=== PATIENT | male | born 2005 | race Two or more races ===

== ENCOUNTER 2025-01-26 17:45 | Emergency (ER) | payer MEDICAID, SELFPAY ==
[2025-01-26 18:38] VITALS: BP 111/80; PULSE 98; RESP 16; TEMP 36.9; O2SAT 98; BMI 29.0
--- NOTE | 2025-01-26 19:19 | XR_ITS ---
Examination: CT brain head without contrast. 2-D sagittal coronal reconstructions Date and time of exam: January 2020, 2024, 1999 hours INDICATIONS: Onset headache dizziness today CTDI: vol (mGy): 45.9 DLP: (mGycm): 839 Technique: Multiple CT axial sections of the brain have been obtained, 5 mm slice thickness. Contrast has not been administered. 2-D sagittal, coronal reconstructions have been obtained Low dose protocols were performed. One or more of the following dose reduction techniques were used; automated exposure control, adjustment of the mA and/or KV according to patient size, use of iterative reconstruction technique. Findings: No significant ventricular enlargement. Intra-axial or extra-axial hemorrhage density is not seen. No mass effect or midline shift Basal cisterns are not remarkable. Fourth ventricle is midline. Cranial vault intact. Impression: Negative for acute hemorrhage, mass effect or midline shift
[2025-01-26 19:42] LABS: Basophils # (Auto) 0.1 Thou/mm3 (0.0-0.2); Basophils % (Auto) 0 % (0-2.5); Eosinophils # (Auto) 0.0 Thou/mm3 (0.0-0.5); Eosinophils % (Auto) 0 % (0-10); Hematocrit 50.0 % (41.0-53.0); Hemoglobin 17.2 g/dL (13.5-16.0); Immature Granulocytes Auto 0.09 Thou/mm3 (0.00-0.00); Lymphocytes # (Auto) 1.1 Thou/mm3 (1.0-4.8); Lymphocytes % (Auto) 6 % (10-50); Mean Corpuscular HGB Conc 34.4 g/dl (31.0-37.0); Mean Corpuscular Hemoglobin 28.7 pg (25.0-35.0); Mean Corpuscular Volume 83 fL (80-100); Monocytes # (Auto) 1.0 Thou/mm3 (0.0-0.8); Monocytes % (Auto) 5 % (0-12); Neutrophils # (Auto) 17.5 Thou/mm3 (1.8-7.7); Neutrophils % (Auto) 88 % (37-80); Nucleated Red Blood Cell # 0.00 Thou/mm3 (0.00-0.00); Nucleated Red Blood Cell % 0 /100 WBC (0); Platelet Count 185 Thou/mm3 (140-440); RDW Standard Deviation 38.5 fL (35.1-43.9); Red Blood Count 6.00 Miln/mm3 (4.50-5.90); White Blood Count 19.8 Thou/mm3 (4.5-11.0)
[2025-01-26 20:32] LABS: Alanine Aminotransferase 28 U/L (10-49); Albumin, Serum > 6.0 gm/dL (3.5-5.0); Albumin/Globulin Ratio 1.5 (1.2-2.2); Alkaline Phosphatase 165 U/L (46-116); Anion Gap 15 (7-16); Aspartate Amino Transferase 31 U/L (0-34); BUN/Creatinine Ratio 12 Ratio (12-20); Bilirubin,Total 0.7 mg/dL (0.3-1.2); Blood Urea Nitrogen 24 mg/dL (9-23); Calcium 11.4 mg/dL (8.3-10.6); Calcium (Corrected) 11.4 mg/dL (8.5-10.1); Carbon Dioxide 23.9 mMol/L (20.0-31.0); Chloride 95 mMol/L (98-107); Creatinine (Component) 2.0 mg/dL (0.6-1.3); Estimated Creatinine Clearance 51.3 mL/min (>60); Globulin 3.9 gm/dL (2.3-3.5); Glucose 108 mg/dL (74-106); Osmolality,Calculated 273 (275-295); Sodium 134 mMol/L (136-145); Total Protein 9.9 gm/dL (5.7-8.2); eGFR 48 See Note
[2025-01-26 20:38] LABS: Potassium 6.2 mMol/L (3.4-5.1)
--- NOTE | 2025-01-26 20:40 | PD.EDRME ---
Rapid Medical Screening Exam RME Arrival date/time: 01/26/25 17:45 This is a case of 20-year-old male who came in in the emergency room due to headache dizziness and blurring of vision for 2 days worsening of the symptoms this patient decided to sought consult here in the emergency ROOM Chief Complaint: Headache Time Seen by Provider: 01/26/25 18:35 Vital signs: Vital Signs Temperature 98.4 F 01/26/25 18:38 Pulse Rate 98 01/26/25 18:38 Respiratory Rate 16 01/26/25 18:38 Blood Pressure 111/80 01/26/25 18:38 Pulse Oximetry (%) 98 01/26/25 18:38 Oxygen Delivery Method Room Air 01/26/25 18:38 Exam: Neurological exam awake alert oriented x 4 no focal deficit GCS 15 overweight 15 steady gait PERRL EOM intact normal conjunctiva Clinical Impression: Headache
--- NOTE | 2025-01-26 20:58 | PD.EDHA ---
ED Headache RME/HPI General Chief Complaint: Headache Stated Complaint: CRAMP IN HEAD W/ BLURRY VISION , ABD PAIN Time Seen by Provider: 01/26/25 18:35 Arrival date/time: 01/26/25 17:45 RME / HPI RME / HPI Narrative: 01/26/25 17:45 This is a case of 20-year-old male who came in in the emergency room due to headache dizziness and blurring of vision for 2 days worsening of the symptoms this patient decided to sought consult here in the emergency ROOM Dr. Yepez?s Main ED Evaluation: 20yo male with no significant past medical history presents to the ED for a chief complaint of a posterior headache x 5 hours. Patient reports associated chest pain and generalized abdominal pain. Denies any N/V or any other associated symptoms. Denies illicit drug use. NKA. Related Data Allergies Allergy/AdvReac Type Severity Reaction Status Date / Time No Known Allergies Allergy Verified 01/26/25 17:51 Review of Systems Review of Systems Systems Reviewed: All systems reviewed, normal except as documented ED Exam Narrative Physical exam: Generally patient is alert no obvious distress, head is normocephalic atraumatic, eyes pupils equal round reactive to light, neck shows no nuchal rigidity, heart regular rate and rhythm, lungs clear to auscultation equal bilaterally, abdomen soft bowel sounds present nondistended nontender, skin is cool pale and dry, neurologic exam showed no focal motor deficits with Pily Coma Scale 15 Course Course Course Narrative: CXR is ordered for determining the etiology of chest pain. Quality Measures none Orders Category Date Time Status EKG (ED ONLY) *Do not use* NOW Care 01/26/25 21:[address] head/brain wo con Stat Exams 01/26/25 19:19 Completed EKG (ED Only) Stat Exams 01/26/25 21:01 Draft XR chest 1V portable Stat Exams 01/26/25 21:43 Completed BMP [Basic Metabolic Panel] Stat Lab 01/26/25 23:07 Completed CBC Stat Lab 01/26/25 19:29 Completed Comprehensive Metabolic Panel Stat Lab 01/26/25 19:29 Completed Potassium Stat Lab 01/26/25 21:02 Completed Urinalysis Stat Lab 01/26/25 21:11 Completed Ringers Lactated 1000 ml [Lactated Ringers] 1,000 ml Med 01/26/25 21:09 Discontinued IV 999 mls/hr Ringers Lactated 1000 ml [Lactated Ringers] 1,000 ml Med 01/26/25 21:09 Discontinued IV 999 mls/hr Vital Signs Vital signs: Vital Signs Temperature 98.4 F 01/26/25 18:38 Pulse Rate 98 01/26/25 18:38 Respiratory Rate 16 01/26/25 18:38 Blood Pressure 111/80 01/26/25 18:38 Pulse Oximetry (%) 98 01/26/25 18:38 Oxygen Delivery Method Room Air 01/26/25 18:38 Headache MDM Narrative MDM Narrative:: Scribe Attestation: 01/26/25 - Clemencia Montesinos am scribing for and in the presence of Dr. Yepez. Patient's original creatinine was 2.0 was a 6.4 potassium. EKG shows some peaking of T waves but with normal QRS duration. Potassium was repeated without therapy and was 5.3. Patient was hydrated with 2 L of IV lactated Ringer's and potassium is now normal at 4.5 and creatinine has gone down to 1.4. Chest x-ray is normal. White count was 19,000 of uncertain significance. Patient's headache may be from dehydration as well as his electrolyte abnormality and renal insufficiency. Patient was encouraged to drink plenty of fluids throughout the day. Follow-up with his doctor. Return to ER as needed or if condition worsens. Clinically this patient does not have meningitis. Patient data External records reviewed:: [facility] previous records (Per chart review, patient has no previous ED visits or admissions to this facility.) Clinical information provided by:: patient Social determinants that could affect healthcare access:: none Patient has the following chronic illnesses:: none How is presenting disease/condition affected by chronic disease/condition?: no chronic disease Evaluation data The following diagnostics were reviewed and interpreted by me:: lab results, radiology exam(s) and EKG tracing(s) Lab and/or radiology exams considered but not ordered:: none Interpretation Summary: [facility] Report Signed Patient: DALJIT JAMESON [facility]. Record#: [id number] Birthdate: 2005 Age/Sex: 20 / M Location: [facility] Attending Dr: Ordering Physician: Travis Montgomery Date of Service: 01/26/25 Procedure(s): CT head/brain wo con Accession Number(s): [id number] cc: Mayo Abraham MD; NO PRIMARY/FAMILY,PHYSICIAN; Travis Montgomery~ Examination: CT brain head without contrast. 2-D sagittal coronal reconstructions Date and time of exam: January 2020, 2024, 2000 hours INDICATIONS: Onset headache dizziness today CTDI: vol (mGy): 45.9 DLP: (mGycm): 839 Technique: Multiple CT axial sections of the brain have been obtained, 5 mm slice thickness. Contrast has not been administered. 2-D sagittal, coronal reconstructions have been obtained Low dose protocols were performed. One or more of the following dose reduction techniques were used; automated exposure control, adjustment of the mA and/or KV according to patient size, use of iterative reconstruction technique. Findings: No significant ventricular enlargement. Intra-axial or extra-axial hemorrhage density is not seen. No mass effect or midline shift Basal cisterns are not remarkable. Fourth ventricle is midline. Cranial vault intact. Impression: Negative for acute hemorrhage, mass effect or midline shift Dictated By: Mayo Abrhaam MD Signed By: <Electronically signed by Mayo Abraham MD in [place]> 01/26/252041 [facility] Signed Patient: DALJIT JAMESON [facility] Record#: [id number] Birthdate: 2005 Age/Sex: 20 / M Location: [facility] Attending Dr: Ordering Physician: Maxwell Yepez DO Date of Service: 01/26/25 Procedure(s): XR chest 1V portable Accession Number(s): [id number] cc: Mayo Abraham MD; NO PRIMARY/FAMILY,PHYSICIAN; Maxwell Yepez DO~ EXAMINATION: AP chest single view TECHNIQUE: AP portable upright chest single view Date and time: January 26, 2025, 10:43 p.m. INDICATIONS: Chest pain today FINDINGS: Normal heart size Lungs are clear. Osseous structures are intact IMPRESSION: No active disease Dictated By: Mayo Abraham MD Signed By: <Electronically signed by Mayo Abraham MD in [place]> 01/26/25 9458 Medications / Prescriptions Medications or Prescriptions considered but not ordered:: none Medication administrations:: Medication Administration History Discontinued Medications Lactated Ringer's (Lactated Ringers) 1,000 mls @ 999 mls/hr IV .Q1H1M ONE Stop: 01/26/25 22:09 Last Infusion: 01/26/25 22:17 Dose: Infused Documented By: Admin: 01/26/25 21:16 Dose: 999 mls/hr Documented By: DT Lactated Ringer's (Lactated Ringers) 1,000 mls @ 999 mls/hr IV .Q1H1M ONE Stop: 01/26/25 22:09 Last Infusion: 01/26/25 22:18 Dose: Infused Documented By: Admin: 01/26/25 21:17 Dose: 999 mls/hr Documented By: DT see above Consultations Consultation(s) initiated? (list below): No Diagnosis Differential diagnosis headache: other (See MDM) Most likely diagnosis given after review of the tests above:: see clinical impression below Admission Indicated Admission indicated?: not indicated Admission Request Was there a request for admission?: No Disposition Plan Disposition Plan: Discharge Discharge Attestation Discharge Attestation: The patient and all family members were given an opportunity to ask questions and understood the discharge instructions. Discharge instructions specifically effects, indications for sooner follow up or return to the emergency department, and the expected course of current diagnosis. Patient condition: Stable Discharge Plan Plan Patient Disposition: HOME (Self Care) Prescriptions/Referrals Referrals: No Primary/Family,Physician [Primary Care Provider] - In 1 week Problem List Clinical Impression: Dehydration Patient/Caregiver Discharge Instructions Education Materials: ED Dehydration (Adult) Additional Instructions: You must drink plenty of fluids throughout the day. Follow-up with your doctor. Return to ER as needed or if condition worsens. Print Language: Bengali Stand Alone Forms: [employer] Info., Patient Portal Info Letter
--- NOTE | 2025-01-26 21:01 | EKG_ITS ---
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
[2025-01-26] MEDS: RINGERS LACTATED 1000 ML 1,000 ML 999 ML IV ×2 (21:16→21:17)
[2025-01-26 21:18] LABS: Collection Type, Urine Clean Catch
[2025-01-26 21:30] LABS: Amorphous Crystals,Urine Present (Absent); Bacteria,Urine Rare; Bilirubin,Urine Negative (Negative); Blood,Urine Trace (Negative); Clarity,Urine Turbid (Clear/Hazy); Color,Urine Yellow (Lt Yel-Yel); Glucose, Urine Negative (Negative); Granular Casts,Urine 1 /hpf (0-1); Hyaline Casts,Urine 2 /hpf (0-1); Ketones,Urine Negative (Negative); Leukocyte Esterase,Urine Negative (Negative); Nitrite,Urine Negative (Negative); PH,Urine 5.5 (5.0-7.0); Protein,Urine 1+ (Neg - Trace); RBC,Urine 2 /hpf (0-3); Specific Gravity,Urine 1.024 (1.001-1.035); Squamous Epithelial Cell,Urine 1 /hpf (0-5); Urobilinogen,Urine Negative mg/dL (0.0-1.0); WBC,Urine 3 /hpf (0-5)
[2025-01-26 21:38] LABS: Potassium 5.3 mMol/L (3.4-5.1)
--- NOTE | 2025-01-26 21:43 | XR_ITS ---
EXAMINATION: AP chest single view TECHNIQUE: AP portable upright chest single view Date and time: January 26, 2025, 10:43 p.m. INDICATIONS: Chest pain today FINDINGS: Normal heart size Lungs are clear. Osseous structures are intact IMPRESSION: No active disease
[2025-01-26 21:45] VITALS: BP 125/89; PULSE 85; RESP 14; O2SAT 99
[2025-01-26 23:00] VITALS: BP 134/85; PULSE 85; RESP 14; O2SAT 99
[2025-01-26 23:33] LABS: Anion Gap 12 (7-16); BUN/Creatinine Ratio 18 Ratio (12-20); Blood Urea Nitrogen 25 mg/dL (9-23); Calcium 9.4 mg/dL (8.3-10.6); Carbon Dioxide 27.0 mMol/L (20.0-31.0); Chloride 101 mMol/L (98-107); Creatinine (Component) 1.4 mg/dL (0.6-1.3); Estimated Creatinine Clearance 73.3 mL/min (>60); Glucose 96 mg/dL (74-106); Osmolality,Calculated 283 (275-295); Potassium 4.5 mMol/L (3.4-5.1); Sodium 140 mMol/L (136-145); eGFR > 60 See Note
[2025-01-27 00:47] VITALS: BP 130/64; PULSE 85; RESP 14; TEMP 37; O2SAT 99
== END 2025-01-27 00:48 | disposition home or self-care (01) ==
PROVIDERS: Nurse Practitioner Family; Emergency Provider Emergency Medicine
DX: E86.0 Dehydration (principal); R07.9 Chest pain, unspecified
CPT/HCPCS: 36415; 70450; 71045; 80048; 80053; 81001; 84132; 85025; 93005; 96360; 99284; J7120